=== PATIENT | male | born 1950 | race Caucasian/White ===

== ENCOUNTER → 2018-04-06 09:36 | Outpatient (BNVA) | payer MEDICARE, BC, SELFPAY | PROVIDERS: PCP Family Medicine; Visit Provider Student in an Organized Health Care Education/Training Program | DX: I25.810 Atherosclerosis of coronary artery bypass graft(s) without angina pectoris (principal); E78.5 Hyperlipidemia, unspecified; M79.10 Myalgia, unspecified site; I10 Essential (primary) hypertension | CPT/HCPCS: 99214 ==

== ENCOUNTER 2018-04-19 09:05 | Outpatient (CLI) | payer MEDICARE, BC, SELFPAY ==
[2018-04-19 10:11] LABS: CREATININE 1.13 mg/dL (0.70-1.30); Glucose 105 mg/dL (70-100)
== END 2018-04-19 09:25 ==
PROVIDERS: PCP Family Medicine; Visit Provider Family Medicine
DX: I25.10 Atherosclerotic heart disease of native coronary artery without angina pectoris (principal)
CPT/HCPCS: 36415; 82947; 82565

== ENCOUNTER 2019-04-17 11:57 | Outpatient (CLI) | payer MEDICARE, BC, SELFPAY ==
[2019-04-17 13:11] LABS: CREATININE 1.03 mg/dL (0.70-1.30); Calculated LDL 68 mg/dL; Cholesterol 126 mg/dL (<200); HDL Cholesterol 49 mg/dL (40-60); Potassium 4.6 mmol/L (3.5-5.1); Triglyceride 49 mg/dL (<150)
== END 2019-04-17 12:17 ==
PROVIDERS: PCP Family Medicine; Visit Provider Family Medicine
DX: E78.5 Hyperlipidemia, unspecified; I10 Essential (primary) hypertension
CPT/HCPCS: 36415; 80061; 82565; 84132

== ENCOUNTER → 2019-04-18 09:47 | Outpatient (BNVA) | payer MEDICARE, BC, SELFPAY | PROVIDERS: PCP Family Medicine; Referring Provider Family Medicine; Visit Provider Internal Medicine Cardiovascular Disease | DX: I21.4 Non-ST elevation (NSTEMI) myocardial infarction (principal); I25.10 Atherosclerotic heart disease of native coronary artery without angina pectoris; E78.00 Pure hypercholesterolemia, unspecified | CPT/HCPCS: 99204; 99215 ==

== ENCOUNTER 2020-04-21 13:29 | Outpatient (REF) | payer MEDICARE, BC, SELFPAY ==
[2020-04-21 22:03] LABS: Hemoglobin A1C 5.8 % (<5.7)
[2020-04-21 22:06] LABS: CREATININE 0.98 mg/dL (0.70-1.30); Calculated LDL 66 mg/dL (<100); Cholesterol 152 mg/dL (<200); HDL Cholesterol 41 mg/dL (40-60); Potassium 4.4 mmol/L (3.5-5.1); Triglyceride 229 mg/dL (<150)
[2020-04-22 19:57] LABS: PSA, Screening 1.8 ng/mL (0.0-4.5)
[2020-04-23 09:29] LABS: Hepatitis C Ab w Rflx HCV PCR Negative (Negative)
== END 2020-04-21 13:49 ==
LOC: LBN 13:29
PROVIDERS: PCP Family Medicine; Visit Provider Family Medicine
DX: I10 Essential (primary) hypertension (principal); Z11.59 Encounter for screening for other viral diseases; E78.5 Hyperlipidemia, unspecified; Z12.5 Encounter for screening for malignant neoplasm of prostate; R73.9 Hyperglycemia, unspecified
CPT/HCPCS: 80061; 84153; 86803; 82565; 83036; 84132

== ENCOUNTER → 2020-04-23 12:51 | Outpatient (BNVA) | payer MEDICARE, BC, SELFPAY | PROVIDERS: PCP Family Medicine; Referring Provider Family Medicine; Visit Provider Internal Medicine Cardiovascular Disease | DX: I25.10 Atherosclerotic heart disease of native coronary artery without angina pectoris (principal); E78.5 Hyperlipidemia, unspecified; I10 Essential (primary) hypertension; Z95.1 Presence of aortocoronary bypass graft | CPT/HCPCS: 99442; 99213 ==

== ENCOUNTER → 2021-04-26 11:26 | Outpatient (BNVA) | payer MEDICARE, SELFPAY | PROVIDERS: PCP Family Medicine; Referring Provider Family Medicine; Visit Provider Internal Medicine Cardiovascular Disease | DX: I25.10 Atherosclerotic heart disease of native coronary artery without angina pectoris (principal); E78.00 Pure hypercholesterolemia, unspecified; Z95.1 Presence of aortocoronary bypass graft | CPT/HCPCS: 99214; 99213 ==

== ENCOUNTER 2021-05-11 02:12 | Outpatient (CLI) | payer MEDICARE, SELFPAY ==
[2021-05-11 09:11] LABS: Hemoglobin A1C 5.7 % (<5.7)
[2021-05-11 09:43] LABS: CREATININE 1.1 mg/dL (0.70-1.30); Calculated LDL 70 mg/dL (<100); Cholesterol 132 mg/dL (<200); HDL Cholesterol 47 mg/dL (40-60); Potassium 4.9 mmol/L (3.5-5.1); Triglyceride 75 mg/dL (<150)
== END 2021-05-11 02:13 | disposition home or self-care (01) ==
PROVIDERS: PCP Family Medicine; Visit Provider Family Medicine
DX: I10 Essential (primary) hypertension (principal); E78.5 Hyperlipidemia, unspecified; R73.09 Other abnormal glucose
CPT/HCPCS: 36415; 80061; 82565; 83036; 84132

== ENCOUNTER 2022-03-05 16:39 | Outpatient (REF) | payer MEDICARE, SELFPAY ==
[2022-03-07 13:08] LABS: COVID-19 RT-PCR UVMMC Result Negative (Negative)
== END 2022-03-05 16:40 | disposition home or self-care (01) ==
LOC: LBN 16:39
PROVIDERS: PCP Family Medicine; Visit Provider Physician Assistant Medical
DX: Z20.822 Contact with and (suspected) exposure to COVID-19 (principal); R05.8 Other specified cough
CPT/HCPCS: U0003

== ENCOUNTER → 2022-04-25 10:44 | Outpatient (BNVA) | payer MEDICARE, SELFPAY | PROVIDERS: PCP Family Medicine; Visit Provider Internal Medicine Cardiovascular Disease | DX: R06.02 Shortness of breath (principal); I25.810 Atherosclerosis of coronary artery bypass graft(s) without angina pectoris | CPT/HCPCS: 93005; 99214 ==

== ENCOUNTER 2022-04-25 10:47 | Outpatient (CLI) | payer MEDICARE, SELFPAY ==
--- NOTE | 2022-04-25 10:45 | RT.EKG_ITS ---
APPROVED REPORT Exam: Resting ECG Reason for Exam: evaluation of cardiac status Patient Location: O HR:64 bpm ECG Measurements Heart Rate 64 AXIS MI 152 P 34 QRSd 90 QRS 28 QT 396 T 49 QTc 409 Conclusion Sinus rhythm...normal P axis, V-rate 50- 99 Probable left atrial enlargement...P >50mS, <-0.10mV V1 Probable inferior infarct, old...Q>35mS, II III aVF Baseline wander in lead(s) V2
== END 2022-04-25 10:48 | disposition home or self-care (01) ==
PROVIDERS: PCP Family Medicine; Visit Provider Internal Medicine Cardiovascular Disease
DX: I25.10 Atherosclerotic heart disease of native coronary artery without angina pectoris (principal); R94.31 Abnormal electrocardiogram [ECG] [EKG]
CPT/HCPCS: 93010

== ENCOUNTER 2022-05-02 00:59 | Outpatient (CLI) | payer MEDICARE, SELFPAY ==
--- NOTE | 2022-05-02 07:00 | DI.NM_ITS ---
APPROVED REPORT Exam: Pharmacologic Patient Location: Out-Patient Room/Bed: Stress Nurse: Jesusita Prather RN Ordering Provider:ANITRA MCCORMICK, Contact Number: BMI: 28.26 Baseline Rhythm: Sinus Bradycardia Indications: H/O CABG and ARMANDO, New exertional dyspnea Medical History Medical History: Coronary arteriosclerosis, HLD, ACS, HTN Cardiac Medications: Nitro, Metoprolol Succinate, Lisinopril, Latanoprost, Ezetimide, Clopidogrel, At orvastatin, Aspirin, Albuterol Sulfate Allergies: NKA Cardiac Risk Factors: +family history, HTN, HLD Previous Cardiac Procedures: CABG 1997, ARMANDO x2 2018 Pretest Chest Pain Characteristics: None Exercise History: Indeterminate Physical Disabilities: None Lung Sounds: Clear Heart Sounds: Regular Stress Test Details Test: Pharmacologic stress was paired with low level exercise. Reason for pharmacologic stress test: unable to come off beta tamar, resting HR 58, physical limi tation. Nuclear Acquisition: Rest Tc-99m/Stress Tc-99m 1 day Rest Isotope: Tc-99m Sestamibi. Dose: 10.4 Date: 05/02/2022 Injection Time: 0825 Stress Isotope: Tc-99m Sestamibi. Dose: 32.4 Date: 05/02/2022 Injection Time: 0950 HR Resting HR Supine: 58 bpm Max Heart Rate (APMHR): 149.399119 bpm Resting HR Standin bpm Target HR (85% APMHR): 126.328699 bpm Max HR Achieved: 98 bpm % of APMHR: 65.77 Recovery HR: 66 bpm BP Resting BP Supine: 130/72 mmHg Resting BP Standin/84 mmHg Max BP: 140/70 mmHg Recovery BP: 120/78 mmHg ECG Resting ECG: Sinus Bradycardia Ectopy: None Stress ECG: Sinus Rhythm ST Change: No significant ST segment changes noted Comment: T wave changes noted in leads I, II, aVL that were not present at rest Recovery ECG: Sinus Rhythm Recovery ST Change: No significant ST segment changes noted Recovery Arrhythmia: None Comment: T wave inversions in lead I, II, and aVL that were not present prior to test Clinical Stress Symptoms: None Rate Pressure Product: 10999 Stress ECG Conclusion 1. Electrocardiogram showed nondiagnostic inferior Q waves 2. Testing was performed using a combination of low-level exercise and pharmacologic stress with rega denoson 3. Peak heart rate achieved was 66% of maximum predicted for age 4. The electrocardiographic portion of the test was nondiagnostic due to inadequate heart rate 5. See MPI report Stress Test Summary STAGE HR BP SpO2 Symptoms NOTES Supine 58 130/72 Standing 60 130/84 1 min post Lexiscan injection 98 138/78 3 min post Lexiscan injection 82 140/70 6 min post Lexiscan injection 66 120/78 MPI Conclusion Myocardial perfusion is abnormal. There is ischemia of the inferior wall. There is no infarction EF is 55% with an inferior wall motion abnormality Radiologist Interpretation Radiologist Interpretation by: Gurmeet Reyez MD Interpretation Date/Time: 05/02/2022 16:57:23
--- NOTE | 2022-05-02 07:00 | DI.RAD_ITS ---
Exam(s) XR CHEST 2V PA LATERAL EXAM: XR CHEST 2V PA LATERAL CLINICAL HISTORY: Cough and shortness of breath,r06.02 TECHNIQUE: 2D digital imaging was performed of the chest. Two images were obtained. PA and lateral views were obtained. COMPARISON: CR CHEST 2 VIEWS PA,LAT from 09/01/2017 FINDINGS: MEDIASTINUM: Normal. HEART: Normal. PULMONARY VASCULATURE: Normal. LUNGS: Clear. PLEURAL SPACE: No pleural effusion or pneumothorax. BONE:Within normal limits for the patient's age. Sternal wires are in place. OTHER FINDINGS:Normal. IMPRESSION: No acute pulmonary findings. DATA REPOSITORY: RADIATION DOSE DELIVERED:
[2022-05-02] MEDS: Regadenoson 0.4 MG/5 ML SYR IVP (10:44)
== END 2022-05-02 01:19 ==
LOC: DI 01:00
PROVIDERS: PCP Family Medicine; Visit Provider Internal Medicine Cardiovascular Disease
DX: R06.02 Shortness of breath (principal); I25.10 Atherosclerotic heart disease of native coronary artery without angina pectoris
CPT/HCPCS: 78452; 93016; 93018; 71046; 93017; J2785

== ENCOUNTER 2022-05-04 04:21 | Outpatient (CLI) | payer MEDICARE, SELFPAY ==
[2022-05-04 12:41] LABS: Hemoglobin A1C 5.8 % (<5.7)
[2022-05-04 12:52] LABS: CREATININE 1.1 mg/dL (0.70-1.30); Calculated LDL 80 mg/dL (<100); Cholesterol 142 mg/dL (<200); Estimated GFR 71.77 (mL/min/1.73m2); HDL Cholesterol 49 mg/dL (40-60); Potassium 4.7 mmol/L (3.5-5.1); Triglyceride 66 mg/dL (<150)
== END 2022-05-04 04:22 | disposition home or self-care (01) ==
LOC: LOS 04:22
PROVIDERS: PCP Family Medicine; Visit Provider Internal Medicine Cardiovascular Disease
DX: E78.5 Hyperlipidemia, unspecified (principal); I10 Essential (primary) hypertension; R73.9 Hyperglycemia, unspecified
CPT/HCPCS: 36415; 80061; 82565; 83036; 84132

== ENCOUNTER → 2022-05-05 12:58 | Outpatient (BNVA) | payer MEDICARE, SELFPAY | PROVIDERS: PCP Family Medicine; Referring Provider Family Medicine; Visit Provider Internal Medicine Cardiovascular Disease | DX: I25.10 Atherosclerotic heart disease of native coronary artery without angina pectoris (principal); I24.9 Acute ischemic heart disease, unspecified; R07.89 Other chest pain; I25.2 Old myocardial infarction; Z95.5 Presence of coronary angioplasty implant and graft | CPT/HCPCS: 99214 ==

== ENCOUNTER 2022-05-05 13:49 | Outpatient (CLI) | payer MEDICARE, SELFPAY | END 2022-05-05 13:50 | disposition home or self-care (01) | LOC: LBO 13:49 | PROVIDERS: PCP Family Medicine; Visit Provider Internal Medicine Cardiovascular Disease | DX: I25.10 Atherosclerotic heart disease of native coronary artery without angina pectoris (principal) | CPT/HCPCS: 36415 ==

== ENCOUNTER 2022-05-05 16:15 | Outpatient (REF) | payer MEDICARE, SELFPAY ==
[2022-05-05 15:26] LABS: HCT 48.4 % (40.0-50.0); HGB 16.1 g/dL (13.5-17.5); MCH 30.4 pg (27.0-33.0); MCHC 33.3 % (32.0-36.0); MCV 91 fL (80-95); MPV 10.2 fL (8.0-11.0); Platelet Count 232 10^3/uL (130-400); RDW 13.1 % (11.8-14.1); RDW-SD 44.3 fL; WBC 9.84 10^3/uL (4.4-10.8)
[2022-05-05 15:37] LABS: BUN 16 mg/dL (7-18); Calcium 10.4 mg/dL (8.5-10.1); Chloride 105 mmol/L (98-107); Estimated GFR 80.47 (mL/min/1.73m2); Glucose 102 mg/dL (74-106); Potassium 4.5 mmol/L (3.5-5.1); Sodium 140 mmol/L (136-145)
[2022-05-05 15:38] LABS: PTT Activated 27.1 sec (21.5-31.9); Prothrombin Time 10.5 sec (9.3-11.0)
== END 2022-05-05 16:16 | disposition home or self-care (01) ==
LOC: LBN 16:15
PROVIDERS: PCP Family Medicine; Visit Provider Internal Medicine Cardiovascular Disease
DX: I24.9 Acute ischemic heart disease, unspecified (principal); I25.10 Atherosclerotic heart disease of native coronary artery without angina pectoris; R06.02 Shortness of breath
CPT/HCPCS: 80048; 85027; 85610; 85730

== ENCOUNTER → 2022-06-23 12:58 | Outpatient (BNVA) | payer MEDICARE, SELFPAY | PROVIDERS: PCP Family Medicine; Referring Provider Family Medicine; Visit Provider Internal Medicine Cardiovascular Disease | DX: I25.10 Atherosclerotic heart disease of native coronary artery without angina pectoris (principal); Z95.5 Presence of coronary angioplasty implant and graft; Z79.82 Long term (current) use of aspirin; Z79.02 Long term (current) use of antithrombotics/antiplatelets | CPT/HCPCS: 99214 ==

== ENCOUNTER → 2022-11-24 12:49 | Outpatient (BNVA) | payer MEDICARE, SELFPAY | PROVIDERS: PCP Family Medicine; Referring Provider Family Medicine; Visit Provider Internal Medicine Cardiovascular Disease | DX: I25.10 Atherosclerotic heart disease of native coronary artery without angina pectoris (principal) | CPT/HCPCS: 99214 ==

== ENCOUNTER 2023-05-29 05:12 | Outpatient (CLI) | payer MEDICARE, SELFPAY ==
[2023-05-29 13:10] LABS: BUN 15 mg/dL (7-18); CO2 29.5 mmol/L (21.0-32.0); CREATININE 1.2 mg/dL (0.70-1.30); Calcium 9.7 mg/dL (8.5-10.1); Calculated LDL 81 mg/dL (<100); Chloride 105 mmol/L (98-107); Cholesterol 149 mg/dL (<200); Estimated GFR 64.25 (mL/min/1.73m2); Glucose 100 mg/dL (74-106); HDL Cholesterol 48 mg/dL (40-60); Potassium 4.2 mmol/L (3.5-5.1); Sodium 141 mmol/L (136-145); Triglyceride 101 mg/dL (<150)
[2023-05-29 13:11] LABS: Anion Gap 6.5 mmol/L (3-11)
== END 2023-05-29 05:13 | disposition home or self-care (01) ==
LOC: LOS 05:12
PROVIDERS: PCP Family Medicine; Visit Provider Family Medicine
DX: E78.5 Hyperlipidemia, unspecified (principal); E87.1 Hypo-osmolality and hyponatremia
CPT/HCPCS: 36415; 80048; 80061

== ENCOUNTER → 2023-06-22 12:42 | Outpatient (BNVA) | payer MEDICARE, SELFPAY | PROVIDERS: PCP Family Medicine; Referring Provider Family Medicine; Visit Provider Internal Medicine Cardiovascular Disease | DX: I25.10 Atherosclerotic heart disease of native coronary artery without angina pectoris (principal) | CPT/HCPCS: 99213 ==

== ENCOUNTER → 2023-06-26 00:57 | Outpatient (CLI) | payer MEDICARE, SELFPAY ==
--- NOTE | 2023-06-26 07:15 | DI.NM_ITS ---
APPROVED REPORT Exam: Pharmacologic Patient Location: Out-Patient Room/Bed: Stress Nurse: Keshia Rhodes RN Ordering Provider:ANITRA MCCORMICK, Contact Number: BMI: 30.86 Baseline Rhythm: Sinus Bradycardia Indications: CAD, MEDINA Medical History Medical History: CT, HLD, CABG, NSTEMI, CAD Cardiac Medications: Aspirin, Nitrol, ventolin HFA, Atorvastatin, clipidogrel, zetia, lisinopril, met oprolol succinate Allergies: NKA Cardiac Risk Factors: Family Hx, CVD, HLD Previous Cardiac Procedures: CABG 1996, PCI Apr 2022 Pretest Chest Pain Characteristics: None Exercise History: Sedentary Physical Disabilities: None Lung Sounds: Clear to auscultation Heart Sounds: Regular, Bradycardia Stress Test Details Test: Pharmacologic stress was paired with low level exercise. Nuclear Acquisition: Rest Tc-99m/Stress Tc-99m 1 day Rest Isotope: Tc-99m Sestamibi. Dose: 10.9 Date: 06/26/2023 Injection Time: 0915 Stress Isotope: Tc-99m Sestamibi. Dose: 32.2 Date: 06/26/2023 Injection Time: 1020 HR Resting HR Supine: 52 bpm Max Heart Rate (APMHR): 148.437574 bpm Resting HR Standin bpm Target HR (85% APMHR): 125.137666 bpm Max HR Achieved: 90 bpm % of APMHR: 60.81 Recovery HR: 63 bpm BP Resting BP Supine: 134/86 mmHg Resting BP Standin/84 mmHg Max BP: 160/76 mmHg Recovery BP: 130/70 mmHg ECG Resting ECG: Sinus Bradycardia Ectopy: none Stress ECG: Sinus Rhythm ST Change: No significant ST segment changes noted Arrhythmia: None Recovery ECG: Sinus Rhythm Recovery ST Change: No significant ST segment changes noted Recovery Arrhythmia: None Clinical Rate Pressure Product: 19986 Stress ECG Conclusion 1. Resting EKG showed nondiagnostic inferior Q waves 2. Patient underwent testing using pharmacologic stress with regadenosan 3. Peak heart rate achieved was 61% of predicted for age 4. The electrocardiographic portion of the test was nondiagnostic 5. See MPI report Stress Test Summary STAGE HR BP SpO2 Symptoms NOTES Supine 52 134/86 96 Standing 58 150/84 1 min post Lexiscan injection 83 94 mild SOB 3 min post Lexiscan injection 77 160/76 97 SOB resolved 6 min post Lexiscan injection 63 130/70 MPI Conclusion Myocardial perfusion is normal. There is no ischemia or evidence of prior infarction EF 48% with normal wall motion Radiologist Interpretation Radiologist Interpretation by: Gurmeet Reyez MD Interpretation Date/Time: 06/26/2023 16:53:02
[2023-06-26] MEDS: Regadenoson 0.4 MG/5 ML SYR IVP (10:20)
== END ==
PROVIDERS: PCP Family Medicine; Visit Provider Internal Medicine Cardiovascular Disease
DX: I25.10 Atherosclerotic heart disease of native coronary artery without angina pectoris (principal)
CPT/HCPCS: 78452; 93016; 93018; 93017; J2785

== ENCOUNTER → 2023-06-30 09:02 | Outpatient (BNVA) | payer MEDICARE, SELFPAY | PROVIDERS: PCP Family Medicine; Referring Provider Family Medicine; Visit Provider Internal Medicine Cardiovascular Disease | DX: I25.2 Old myocardial infarction (principal); I42.2 Other hypertrophic cardiomyopathy; I25.10 Atherosclerotic heart disease of native coronary artery without angina pectoris; R06.02 Shortness of breath | CPT/HCPCS: 93005; 99213 ==

== ENCOUNTER → 2023-09-22 08:42 | Outpatient (BNVA) | payer MEDICARE, SELFPAY | PROVIDERS: PCP Family Medicine; Referring Provider Family Medicine; Visit Provider Internal Medicine Cardiovascular Disease | DX: I25.10 Atherosclerotic heart disease of native coronary artery without angina pectoris (principal) | CPT/HCPCS: 99213 ==

== ENCOUNTER → 2024-01-26 08:38 | Outpatient (BNVA) | payer MEDICARE, SELFPAY | PROVIDERS: PCP Family Medicine; Visit Provider Internal Medicine Cardiovascular Disease | DX: I25.10 Atherosclerotic heart disease of native coronary artery without angina pectoris (principal) | CPT/HCPCS: 99213 ==

== ENCOUNTER 2024-05-31 09:26 | Outpatient (CLI) | payer MEDICARE, SELFPAY ==
[2024-05-31 09:34] LABS: HCT 48.3 % (40.0-50.0); HGB 15.9 g/dL (13.5-17.5); MCH 30.5 pg (27.0-33.0); MCHC 32.9 % (32.0-36.0); MCV 93 fL (80-95); MPV 9.7 fL (8.0-11.0); Platelet Count 198 10^3/uL (130-400); RBC 5.22 10^6/uL (4.36-5.78); RDW 12.9 % (11.8-14.1); RDW-SD 43.9 fL; WBC 7.14 10^3/uL (4.4-10.8)
[2024-05-31 09:52] LABS: Hemoglobin A1C 5.9 % (<5.7)
[2024-05-31 10:14] LABS: CREATININE 1.2 mg/dL (0.70-1.30); Calculated LDL 62 mg/dL (<100); Cholesterol 122 mg/dL (<200); Estimated GFR 63.85 (mL/min/1.73m2); HDL Cholesterol 48 mg/dL (>or=40); Potassium 4.8 mmol/L (3.5-5.1); Triglyceride 62 mg/dL (<150)
== END 2024-05-31 09:27 | disposition home or self-care (01) ==
LOC: LBO 09:26
PROVIDERS: PCP Family Medicine; Visit Provider Family Medicine
DX: E78.5 Hyperlipidemia, unspecified (principal); I10 Essential (primary) hypertension; R73.9 Hyperglycemia, unspecified; R53.83 Other fatigue
CPT/HCPCS: 36415; 80061; 85027; 82565; 83036; 84132

== ENCOUNTER → 2024-07-29 08:42 | Outpatient (BNVA) | payer MEDICARE, SELFPAY | PROVIDERS: PCP Family Medicine; Referring Provider Family Medicine; Visit Provider Registered Nurse | DX: I25.10 Atherosclerotic heart disease of native coronary artery without angina pectoris (principal) | CPT/HCPCS: 99213 ==